=== PATIENT | male | born 1960 | race Caucasian/White ===

== ENCOUNTER 2022-08-09 01:07 | Inpatient (IN) | payer OTHER ==
[~2022-08-09] VITALS: Ht 188 cm; Wt 113.6 kg
[2022-08-09] VITALS (9 sets, daily range): BP systolic 133–157; BP diastolic 72–95
[2022-08-09 01:27] LABS: BASOPHILS # (AUTO) 0.1 X10'3 (0-0.2); BASOPHILS % (AUTO) 1.3 % (0-1); EOSINOPHILS # (AUTO) 0.3 X10'3 (0-0.9); EOSINOPHILS % (AUTO) 4.6 % (0-6); HEMATOCRIT 43.3 % (42.0-52.0); HEMOGLOBIN 14.4 g/dl (14.0-17.9); LYMPHOCYTES # (AUTO) 1.6 X10'3 (1.1-4.8); MEAN CORPUSCULAR HEMOGLOBIN 29.2 PG (27.0-31.0); MEAN CORPUSCULAR HGB CONC 33.4 g/dL (33.0-36.5); MEAN CORPUSCULAR VOLUME 87.5 FL (78-98); MEAN PLATELET VOLUME 7.8 FL (7.4-10.4); MONOCYTES # (AUTO) 0.5 X10'3 (0-0.9); MONOCYTES % (AUTO) 7.9 % (2-12); NEUTROPHILS # (AUTO) 4.3 X10'3 (1.8-7.7); NEUTROPHILS % (AUTO) 63.2 % (42-75); PLATELET COUNT 218 X10'3 (140-440); RED BLOOD COUNT 4.95 X10'6 (4.70-6.10); RED CELL DISTRIBUTION WIDTH 13.5 % (11.5-14.5); WHITE BLOOD COUNT 6.8 X10'3 (4.5-11.0)
[2022-08-09 01:37] LABS: ALANINE AMINOTRANSFERASE 52 U/L (12-78); ALBUMIN 3.7 G/DL (3.4-5.0); ALBUMIN/GLOBULIN RATIO 1.2 (1.1-1.5); ALKALINE PHOSPHATASE 91 IU/L (46-116); ANION GAP 9 (8-16); ASPARTATE AMINO TRANSFERASE 25 U/L (10-37); BILIRUBIN,TOTAL 0.3 MG/DL (0.1-1.0); BLOOD UREA NITROGEN 26 MG/DL (7-18); BUN/CREATININE RATIO 26.5 (10.0-20.0); CALCIUM 8.7 MG/DL (8.5-10.1); CHLORIDE 108 MMOL/L (99-107); CREATININE 0.98 MG/DL (0.60-1.10); GLUCOSE 120 MG/DL (70-104); POTASSIUM 3.8 MMOL/L (3.5-5.1); SODIUM 144 MMOL/L (135-145); TOTAL CARBON DIOXIDE 27.1 MMOL/L (24-32); TOTAL PROTEIN 6.8 G/DL (6.4-8.2); eGFR 78 ML/MIN
[2022-08-09] MEDS ORDERED: nitroGLYCERIN 1gm ointment UD TP ONE (03:30)
--- NOTE | 2022-08-09 04:00 | NUR ---
nitro paste applied to rt upper chest wall
[2022-08-09] MEDS ORDERED: LISI5TAB22 PO (04:11)
[2022-08-09] MEDS ORDERED: magnesium hydroxide 30ml (MOM) UD suspension PO PRN (04:20)
[2022-08-09] MEDS ORDERED: magnesium 2GM in 50ml NS 50 ML IV PRN (04:20)
[2022-08-09] MEDS ORDERED: potassium Cl 40MEQ/1/2NS 520ml 520 ML IV PRN (04:20)
[2022-08-09] MEDS ORDERED: acetaminophen 325mg tablet PO PRN (04:20)
[2022-08-09] MEDS ORDERED: mag hydrox/Alum hydrox/simeth 30ml oral suspension PO PRN (04:20)
[2022-08-09] MEDS ORDERED: magnesium Cl slow-release 64mg tablet PO PRN (04:20)
[2022-08-09] MEDS ORDERED: magnesium 4gm in 100ml NS 100 ML IV PRN (04:20)
[2022-08-09] MEDS ORDERED: normal saline 1000ml 1,000 ML IV SCH (04:20)
[2022-08-09] MEDS ORDERED: ondansetron/PF 4mg/2ml inj IV PRN (04:20)
[2022-08-09] MEDS ORDERED: potassium Cl 20 mEq SR tablet PO PRN ×2 (04:20)
[2022-08-09] MEDS ORDERED: PERFLUTREN PROTEIN-A MICROSPHR (Optison) 0.22 MG/ML 3ML VIAL IV ONE (04:20)
[2022-08-09] MEDS ORDERED: regadenoson 0.4mg/5ml syringe IV PRN (04:25)
[2022-08-09] MEDS ORDERED: nitroGLYCERIN 0.4mg SUBLingual tab SL PRN (04:25)
[2022-08-09] MEDS ORDERED: metoprolol tartrate 12.5mg (1/2 tablet) PO ONE (04:25)
[2022-08-09] MEDS ORDERED: aminophylline 250mg/10ml inj. IV PRN (04:25)
[2022-08-09] MEDS ORDERED: metoprolol tartrate 1mg/ml inj IV PRN (04:25)
[2022-08-09 04:37] LABS: HEMOGLOBIN A1C 5.3 % (4.5-6.2)
--- NOTE | 2022-08-09 05:45 | NUR ---
nitro paste removed.stress test in the a.m.
--- NOTE | 2022-08-09 05:59 | NUR ---
Pt NPO upon arrival came up in a wheelchair VSS
--- NOTE | 2022-08-09 05:59 | NUR ---
report called to floor nurse pt tx to room 3021 by nurse.
--- NOTE | 2022-08-09 06:35 | NUR ---
Patient in room PCU 3021. I have received report from romel cagle and had the opportunity to ask questions and assume patient care.
--- NOTE | 2022-08-09 06:35 | NUR ---
Problems reprioritized. Patient report given, questions answered & plan of care reviewed with JUSTIN Wall.
[2022-08-09 07:00] LABS: MAGNESIUM 2.1 MG/DL (1.5-2.4); POTASSIUM 3.8 MMOL/L (3.5-5.1)
[2022-08-09] MEDS: lisinopril 5mg tablet PO SCH ×2 (07:38→11:59)
[2022-08-09] MEDS ORDERED: heparin, porcine 5000 units/ml vial SQ SCH (08:00)
[2022-08-09] MEDS ORDERED: K and/or MAG REPLACEMENT MC SCH (08:00)
[2022-08-09] MEDS ORDERED: docusate sod 100mg capsule PO SCH (08:00)
[2022-08-09] MEDS ORDERED: aspirin 81mg, enteric-coated 1 TAB TABLET.DR PO SCH (08:00)
--- NOTE | 2022-08-09 11:57 | NUR ---
PAGED DR PARKER RE: PAGER ID: [phone] MESSAGE: MARGOT ACUNA. STRESS TEST RESULTED, GETTING ECHO DONE NOW. ZAIN [id number] TELE
--- NOTE | 2022-08-09 12:58 | NUR ---
PT DISCHARGED IN STABLE CONDITION. LEFT FACILITY IN PRIVATE VEHICLE WITH . IV DC CANULA INTACT. FOLLOW UP INSTRUCTIONS GIVEN, ALL QUESTIONS ANSWERED. ALL BELONGINGS IN HAND. Addendum: 08/09/22 at 1300 by Natalya Walker RN Amended: Links added.
== END 2022-08-09 12:59 | disposition home or self-care (01) | DRG 392 ==
LOC: ER 01:07 → PCU 3S 04:21
PROVIDERS: ADMIT Internal Medicine; ATTEND Family Medicine
PROC: 4A02XM4 Measurement of Cardiac Total Activity, External Approach (ICD-10-PCS; principal; 2022-08-09)
PROC: 3E073KZ Introduction of Other Diagnostic Substance into Coronary Artery, Percutaneous Approach (ICD-10-PCS; 2022-08-09)
DX: K21.9 Gastro-esophageal reflux disease without esophagitis (principal); E78.5 Hyperlipidemia, unspecified; I10 Essential (primary) hypertension; Z88.5 Allergy status to narcotic agent; Z79.899 Other long term (current) drug therapy
CPT/HCPCS: 36415; 71045; 78452; 80053; 83036; 83735; 83880; 84132; 84484; 85025; 87081; 93005; 93017; 93306; 99285; A9500; G0378; J1644; J2785; J7030